=== PATIENT | female | born 1950 | race Hispanic/Latino ===

== ENCOUNTER 2019-11-17 19:06 | Emergency (ER) | payer MEDICARE ==
[2019-11-17 20:07] LABS: BASOPHILS % (AUTO) 0.2 % (0.0-5.0); HEMATOCRIT 32.4 % (36-48); LYMPHOCYTES % (AUTO) 31.6 % (21.0-51.0); MEAN CORPUSCULAR HEMOGLOBIN 29.5 pg (27.0-33.0); MEAN CORPUSCULAR HGB CONC 32.1 g/dL (32.0-36.0); MEAN CORPUSCULAR VOLUME 91.8 fL (79-99); MONOCYTES % (AUTO) 7.1 % (3.0-13.0); PLATELET COUNT (AUTO) 413 K/uL (130-400); RED BLOOD CELL COUNT(AUTO) 3.53 MIL/uL (4.00-5.50); RED CELL DISTRIBUTION WIDTH 14.3 % (11.0-15.5); WHITE BLOOD COUNT (AUTO) 4.5 K/uL (4.8-10.8)
[2019-11-17 20:19] LABS: PARTIAL THROMBOPLASTIN TIME 32.9 SEC (26.3-35.5); PROTHROMBIN TIME 10.8 SEC (9.6-11.6)
[2019-11-17 20:47] LABS: ABG BASE EXCESS -0.5 mmol/L (-2.0-3.0); ABG HCO3 22.4 mmol/L (21.0-28.0); ABG PCO2 32 mmHg (32-45)
[2019-11-17 20:59] LABS: CREATININE 1.8 mg/dL (0.5-1.5); POTASSIUM 5.4 mmol/L (3.5-5.1)
[2019-11-17 21:07] LABS: ALBUMIN 2.3 g/dL (3.5-5.0); BILIRUBIN,TOTAL 0.3 mg/dL (0.2-1.0); TOTAL PROTEIN, SERUM 8.6 g/dL (6.0-8.3)
[2019-11-17 21:10] LABS: B-TYPE NATRIURETIC PEPTIDE 25 pg/mL (0-100)
== END 2019-11-18 00:08 | disposition home or self-care (01) ==
LOC: EDH 19:06
DX: U07.1 COVID-19 (principal); J12.89 Other viral pneumonia; N28.9 Disorder of kidney and ureter, unspecified; J44.9 Chronic obstructive pulmonary disease, unspecified; Z90.710 Acquired absence of both cervix and uterus; Z87.891 Personal history of nicotine dependence
CPT/HCPCS: 36415; 36600; 71045; 80053; 82550; 82803; 83605; 83880; 84484; 85025; 85378; 85610; 85730; 93005

== ENCOUNTER 2019-11-19 21:01 | Inpatient (IN) | payer MEDICARE ==
[~2019-11-19] VITALS: Ht 154.9 cm; Wt 100.2 kg
[2019-11-19] MEDS ORDERED: ALBUTEROL INHALER 90MCG/INH IH ONE (22:47)
[2019-11-20] MEDS ORDERED: CEFTRIAXONE SODIUM 1 GM ONE (00:33)
[2019-11-20] MEDS ORDERED: ENOXAPARIN SODIUM 40 MG/0.4 ML SYRINGE SQ ONE (00:33)
[2019-11-20] MEDS ORDERED: DEXAMETHASONE SOD PHOSPHATE 10MG/ML 1ML VIAL ONE (00:33)
[2019-11-20] MEDS ORDERED: AZITHROMYCIN 250 MG TABLET PO ONE (00:34)
[2019-11-20] MEDS ORDERED: SODIUM CHLORIDE 0.9% 500ML 500 ML IV ONE (00:35)
[2019-11-20] MEDS ORDERED: DOXYCYCLINE 100MG+NS 250ML IV SCH (00:45)
[2019-11-20] MEDS ORDERED: ACETAMINOPHEN 325 MG TAB PO PRN (00:45)
[2019-11-20] MEDS ORDERED: DIPHENHYDRAMINE HCL 25 MG CAPSULE PO PRN (00:45)
[2019-11-20] MEDS ORDERED: ERGOCALCIFEROL (VITAMIN D2) 50,000 UNIT CAPSULE PO ONE (00:45)
[2019-11-20] MEDS ORDERED: DiphenhydrAMINE HCL 50 MG/ML VIAL IV PRN (00:45)
[2019-11-20] MEDS ORDERED: ZOLPIDEM TARTRATE 5 MG TAB PO PRN (00:45)
[2019-11-20] MEDS ORDERED: MAG HYDROX/AL HYDROX/SIMETH 30 ML, LIDOCAINE HCL 2% VISCOUS 30 ML, DIPHENHYDRAMINE HCL ... PO PRN ×3 (00:45)
[2019-11-20] MEDS ORDERED: LACTULOSE 20 GM/30 ML UDCUP PO PRN (00:45)
[2019-11-20] MEDS ORDERED: GUAIFENESIN-DM 200/20 MG 10 ML PO PRN (00:45)
[2019-11-20] MEDS ORDERED: NITROGLYCERIN 0.4 MG SL TAB SL PRN (00:45)
[2019-11-20] MEDS: DEXAMETHASONE SOD PHOSPHATE 4 MG/ML 1ML VIAL IVP SCH (01:00)
[2019-11-20] MEDS ORDERED: ERGOCALCIFEROL (VITAMIN D2) 50,000 UNIT CAPSULE ONE (03:39)
[2019-11-20] MEDS ORDERED: DOXYCYCLINE 100MG+NS 250ML 250 ML IV ONE (03:39)
[2019-11-20] MEDS: HEPARIN SODIUM 5000UNIT/ML 1ML VIAL SQ SCH ×3 (06:00→20:39)
[2019-11-20] MEDS: ZINC SULFATE 220 CAPSULE PO SCH (09:00)
[2019-11-20] MEDS: ASCORBIC ACID 500 MG TAB PO SCH (09:00)
[2019-11-20] MEDS: FAMOTIDINE/PF 20 MG/2 ML VIAL IV SCH (09:00)
[2019-11-20] MEDS ORDERED: ZINC SULFATE 220 CAPSULE ONE (11:48)
[2019-11-20 13:22] VITALS: BP 128/76
[2019-11-20] MEDS ORDERED: SODIUM CHLORIDE 0.9% 1000ML 1,000 ML IV SCH (13:30)
[2019-11-20] MEDS: CEFTRIAXONE SODIUM 1 GM IVP SCH (14:31)
[2019-11-20] MEDS ORDERED: DOXYCYCLINE 100MG+NS 250ML 250 ML IV SCH (15:00)
[2019-11-20] MEDS ORDERED: ALPR0.255 PO (16:15)
[2019-11-20] MEDS ORDERED: AZIT250T9 PO (16:15)
[2019-11-20] MEDS ORDERED: LEVO750T46 PO (16:15)
[2019-11-20] MEDS ORDERED: FLUT1AER IH (16:15)
[2019-11-20] MEDS ORDERED: OMEP40CA13 PO (16:15)
[2019-11-20] MEDS ORDERED: IVER3TAB PO (16:15)
[2019-11-20 16:21] VITALS: BP 122/71
[2019-11-20] MEDS: ONDANSETRON HCL 4 MG/2 ML VIAL IV PRN (16:33)
[2019-11-20] MEDS ORDERED: SOD FERRIC GLUC COMPLEX/SUC 125 MG in SODIUM CHLORIDE 0.9% 100 ML IV SCH (16:45)
[2019-11-20 19:53] VITALS: BP 125/76
--- NOTE | 2019-11-20 20:08 | NUR ---
INITIAL SW spoke with patient's daughter, Toyin Go. Patient lives daughter, Mackenzie Bynum. She has no home services. DME: glucometer(no insulin), BPM, nebulizer. Patient is able to complete ADL's independently and drives. 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 Pharmacy is [facility] in [place]. DCP is home. Addendum: 11/20/19 at 2009 by LAURENT DIETZ SS Amended: Links added.
[2019-11-20 23:27] VITALS: BP 150/75
[2019-11-21] MEDS: CEFTRIAXONE SODIUM 1 GM IVP SCH ×2 (01:19→13:46)
[2019-11-21] MEDS: DEXAMETHASONE SOD PHOSPHATE 4 MG/ML 1ML VIAL IVP SCH (01:20)
[2019-11-21 04:35] VITALS: BP 144/84
[2019-11-21 07:38] VITALS: BP 127/77
[2019-11-21] MEDS ORDERED: SOD FERRIC GLUC COMPLEX/SUC 125 MG in SODIUM CHLORIDE 0.9% 100 ML IV SCH (09:00)
[2019-11-21] MEDS: ONDANSETRON HCL 4 MG/2 ML VIAL IV PRN ×2 (09:00→15:30)
[2019-11-21] MEDS: ACETAMINOPHEN 325 MG TAB PO PRN (10:20)
[2019-11-21] MEDS: ZINC SULFATE 220 CAPSULE PO SCH (10:40)
[2019-11-21] MEDS: ASCORBIC ACID 500 MG TAB PO SCH (10:40)
[2019-11-21] MEDS: FAMOTIDINE/PF 20 MG/2 ML VIAL IV SCH (10:40)
[2019-11-21] MEDS: DOXYCYCLINE HYCLATE 100 MG TABLET PO SCH ×2 (10:40→20:30)
[2019-11-21 11:17] VITALS: BP 130/67
[2019-11-21] MEDS ORDERED: SODIUM CHLORIDE 0.9% 1000ML 1,000 ML IV SCH (12:00)
[2019-11-21] MEDS: PHARMACY COMMUNICATION MISC SCH ×2 (13:47→20:30)
[2019-11-21] MEDS: HEPARIN SODIUM 5000UNIT/ML 1ML VIAL SQ SCH ×2 (14:22→20:34)
[2019-11-21 15:48] VITALS: BP 145/71
[2019-11-21] MEDS: MORPHINE SULFATE 2 MG/ML 1ML SYG IV PRN ×2 (17:50→22:42)
[2019-11-21 20:06] VITALS: BP 151/81
[2019-11-21] MEDS: MAG HYDROX/AL HYDROX/SIMETH ES 30 ML SUSP UDCUP PO PRN (20:30)
--- NOTE | 2019-11-21 20:30 | NUR ---
ABDOMINAL PAIN Pt complained of abdominal discomfort,Myalanta given. Addendum: 11/21/19 at 2248 by CHAITANYA SANDOVAL RN RN *GISELA
[2019-11-21] MEDS: ALPRAZOLAM 0.25 MG TABLET PO PRN (21:42)
--- NOTE | 2019-11-21 21:42 | NUR ---
XANAX Pt wants her Xanax,c/o generalized pain and anxiety.
--- NOTE | 2019-11-21 22:34 | NUR ---
ABDOMINAL PAIN Pt constantly complaining of pain to her left side of her stomach,states Mprhine did not help.Lazara Whitehead Np.
[2019-11-21] MEDS ORDERED: MORPHINE SULFATE 2 MG/ML 1ML SYG IVP ONE (22:45)
--- NOTE | 2019-11-21 22:45 | NUR ---
MORPHINE Morphine 2 mg iv given as per Manager Specialty order for pt.s c/o persistent abdominal pain.
[2019-11-21 23:40] VITALS: BP 142/74
--- NOTE | 2019-11-21 23:45 | NUR ---
MED EFFECT Pt resting ,more calm.
[2019-11-22] MEDS: CEFTRIAXONE SODIUM 1 GM IVP SCH ×2 (00:28→18:28)
[2019-11-22] MEDS: DEXAMETHASONE SOD PHOSPHATE 4 MG/ML 1ML VIAL IVP SCH (00:29)
[2019-11-22] MEDS: MAG HYDROX/AL HYDROX/SIMETH ES 30 ML SUSP UDCUP PO PRN (01:34)
--- NOTE | 2019-11-22 01:47 | NUR ---
AWAKE Pt awake,still c/o abdominal discomfort,states she's constipated and wants to go home tomorrow.Medicated with Maalox as per request.
--- NOTE | 2019-11-22 03:00 | NUR ---
REST Pt resting now,eyes closed.
[2019-11-22 04:07] VITALS: BP 125/79
[2019-11-22] MEDS: PHARMACY COMMUNICATION MISC SCH ×4 (04:11→20:45)
--- NOTE | 2019-11-22 04:27 | NUR ---
CONSTIPATION Pt wants something for constipation now,Lactulose given.
[2019-11-22] MEDS: HEPARIN SODIUM 5000UNIT/ML 1ML VIAL SQ SCH ×3 (05:41→20:42)
--- NOTE | 2019-11-22 05:53 | NUR ---
PRUNE JUICE Pt offered prune juice,she said she just wants to have a bowel movement.
[2019-11-22] MEDS: MORPHINE SULFATE 2 MG/ML 1ML SYG IV PRN (06:04)
[2019-11-22] MEDS: ACETAMINOPHEN 325 MG TAB PO PRN ×2 (06:12→13:49)
--- NOTE | 2019-11-22 06:15 | NUR ---
PAIN Pt c/o abdominal pain,refused Morphine,she wants Tylenol instead.Medicated as per Emar.
[2019-11-22 08:00] VITALS: BP 103/54
[2019-11-22] MEDS: ZINC SULFATE 220 CAPSULE PO SCH (09:47)
[2019-11-22] MEDS: DOXYCYCLINE HYCLATE 100 MG TABLET PO SCH ×2 (09:47→20:45)
[2019-11-22] MEDS: ASCORBIC ACID 500 MG TAB PO SCH (09:47)
[2019-11-22] MEDS: FAMOTIDINE/PF 20 MG/2 ML VIAL IV SCH (09:47)
[2019-11-22] MEDS ORDERED: KETOROLAC TROMETHAMINE 60 MG/2 ML VIAL IM SCH (10:30)
[2019-11-22] MEDS ORDERED: KETOROLAC TROMETHAMINE 15MG/ML IM PRN (11:15)
[2019-11-22 12:00] VITALS: BP 108/75
--- NOTE | 2019-11-22 12:00 | NUR ---
SHIFT UPDATE PATIENT WITH C/O LUQ ABDOMINAL PAIN WITH EPISODE OF XL LOOSE STOOL X1. PATIENT STATES MORPHINE INEFFECTIVE FOR PAIN, MD MEDLEY NOTIFIED OF ABOVE COMPLAINTS AND GAVE ORDERS FOR XRAY OF ABD, PLACE PICC LINE AND TORADOL 15MG IM FOR PAIN. INTERVENTIONS FOLLOWED PER ORDER. STILL AWAITING PICC LINE PLACEMENT. CONSENT SINGED, PT/INR ORDERED AND SILVERER NOTIFIED OF NEED. PATIENT IS IN BED AT THIS TIME, CURRENT PAIN IS 7/10. NO RESP. DISTRESS NOTED, CALL DEVICE WITHIN REACH WILL CONT TO MONITOR.
[2019-11-22] MEDS: ALPRAZOLAM 0.25 MG TABLET PO PRN (13:49)
--- NOTE | 2019-11-22 13:49 | NUR ---
ABDOMINAL PAIN Patient cont. to c/o abdominal pain 06/14 and increased anxiety at this time. Episode of Large loose stool x1. Pt medicated per PRN MD orders. Tolerated well, call device within reach will cont. to monitor.
--- NOTE | 2019-11-22 14:30 | NUR ---
CDA CRITERIA PATIENT ON 4 COPD CANCER. ABDOMINAL PAIN GETTING XRAY TO R/O PERFFERATION. GETTING ACUTE WORK UP. CHANGING IV PAIN MEDS TO PO. DOES NOT MEET CRITERIA TODAY. Addendum: 11/22/19 at 1432 by SHIRLEY PAIZ RN CM Amended: Links added.
[2019-11-22 16:00] VITALS: BP 112/69
[2019-11-22] MEDS: SODIUM CHLORIDE 0.9% 1000ML 1,000 ML IV SCH ×2 (18:28→20:43)
[2019-11-22] MEDS: MORPHINE SULFATE 4 MG/1ML SYG IV PRN (18:50)
[2019-11-22] MEDS: ONDANSETRON HCL 4 MG/2 ML VIAL IV PRN (18:50)
--- NOTE | 2019-11-22 19:30 | NUR ---
SHIFT UPDATE GROUND WOOD SUPERVISOR JN Vazquez APRN RETURNED CALL AND INFORMED OF ABDOMINAL XRAY RESULTS. NEW ORDERS GIVEN 1)PATIENT NPO 2)PLACE NG TUBE 3) CONSULT FOR SURGERY FOR SMALL BOWEL OBSTRUCTION. PATIENT MADE AWARE OF NEW ORDERS. ONCOMING SHIFT NURSE MADE AWARE OF NEW ORDERS. WILL CONT TO MONITOR.
[2019-11-22 19:33] VITALS: BP 125/59
[2019-11-22 23:10] VITALS: BP 119/72
--- NOTE | 2019-11-23 | NUR ---
ng tube placed in left nares by moe from er and validated placement with cosmo.
--- NOTE | 2019-11-23 00:28 | NUR ---
CHEST XRAY TAKEN TO VERIFY PLACEMENT OF TUBE. PLACED IN THE STOMACH. PATIENT CONNECTED TO LOWE INTERMITTENT SUCTION.
[2019-11-23] MEDS: ONDANSETRON HCL 4 MG/2 ML VIAL IV PRN ×2 (00:30→06:49)
[2019-11-23] MEDS: MORPHINE SULFATE 4 MG/1ML SYG IV PRN ×3 (00:39→13:49)
[2019-11-23 03:20] VITALS: BP 108/60
[2019-11-23] MEDS: HEPARIN SODIUM 5000UNIT/ML 1ML VIAL SQ SCH ×3 (06:00→21:06)
--- NOTE | 2019-11-23 06:38 | NUR ---
ELEVATED D-DIMER THIS NURSE RECEIVED A CALL FROM LAB STATING D-DIMER WAS ELEVATED GREATER THAN 10,000. PAGED THE DOCTOR RETAIL CLIENT MANAGER FOR DR. MEDLEY. RETURNED CALL ACKNOWLEDGING D-DIMER AND NO ORDERS RECEIVED.
--- NOTE | 2019-11-23 06:50 | NUR ---
PATIENT PULLED OUT NG AND STATED SHE DOESN'T KNOW WHY SHE PULED IT OUT. EDUCATED THE IMPORTANCE OF KEEPING NG TUBE IN AND THAT THE DOCTOR WANTS HER TO HAVE IT IN. 629 LAURYN RN PLACED NG TUBE IN LEFT NARES AT 60CM WITH IMMEDIATE BRIGHT YELLOW RETURN PATIENT TOLERATED WELL LAURYN RN AND THIS NURSE VERIFIED PLACEMENT. AT 45 X-RAY VERIFIED PLACEMENT OF NG TUBE. NG CONNECTED TO LOW INTERMITTENT SUCTION AND MEDICATION GIVEN FOR PAIN AND NAUSEA.
[2019-11-23 08:00] VITALS: BP 117/57
[2019-11-23] MEDS: DEXAMETHASONE SOD PHOSPHATE 4 MG/ML 1ML VIAL IVP SCH (08:43)
[2019-11-23] MEDS: CEFTRIAXONE SODIUM 1 GM IVP SCH ×2 (08:43→21:05)
[2019-11-23] MEDS: FAMOTIDINE/PF 20 MG/2 ML VIAL IV SCH (08:43)
[2019-11-23] MEDS: ZINC SULFATE 220 CAPSULE PO SCH (08:44)
[2019-11-23] MEDS: DOXYCYCLINE HYCLATE 100 MG TABLET PO SCH ×2 (08:44→20:05)
[2019-11-23] MEDS: DOCUSATE SODIUM 100 MG CAP PO SCH (08:44)
[2019-11-23] MEDS: ASCORBIC ACID 500 MG TAB PO SCH (08:44)
[2019-11-23] MEDS: SODIUM CHLORIDE 0.9% 1000ML 1,000 ML IV SCH ×2 (08:45→20:03)
--- NOTE | 2019-11-23 09:48 | NUR ---
COVID PCR TEST Patient swabbed for COVID PCR Exam, sample brought to lab.
[2019-11-23 11:09] VITALS: BP 108/67
[2019-11-23] MEDS: PHARMACY COMMUNICATION MISC SCH ×3 (12:30→20:04)
--- NOTE | 2019-11-23 13:07 | NUR ---
Patient Disoriented and pulling out lines. Patient pulled out NGT and PICC Line. MD Walker contacted to request a one to one sitter and prn ativan, awaiting response.
[2019-11-23] MEDS ORDERED: LORAZEPAM 2 MG/ML 1 ML VIAL IVP PRN (13:30)
[2019-11-23] MEDS ORDERED: HYDROMORPHONE HCL 2 MG/ML VIAL IVP PRN (15:00)
--- NOTE | 2019-11-23 15:49 | NUR ---
NG TUBE NG Tube attempted x3, patient either pulled it back out or it came through her mouth. Patient unable to put chin to chest and swallow. MD Walker made aware.
[2019-11-23 16:00] VITALS: BP 89/55
--- NOTE | 2019-11-23 18:20 | NUR ---
URINARY RETENTION Bladder scan done per MD Walker request, 410 ml urine noted on bladder scan. Patient retaining urine. Crow catheter inserted, 400 ml of bloody urine drained into bag. Sample sent to lab for urine lytes and urine culture. Patient resting comfortably with sitter at bedside.
[2019-11-23] MEDS: LORAZEPAM 2 MG/ML 1 ML VIAL IVP PRN ×2 (18:22→23:58)
--- NOTE | 2019-11-23 19:30 | NUR ---
ASSESSMENT PATIENT BECAME MORE DISORIENTED ON DAY SHIFT. ATIVAN AND DILAUDED HAD BEEN GIVEN BEFORE THIS NURSE ARRIVED. PATIENT WAS RESTING QUIETLY WITH AROUSAL TO TOUCH. NRB ON. OXYGEN SATTING HIGH 90'S. SITTER IS AT BEDSIDE TO WATCH PATIENT SHE HAD PULLED OUT MULTIPLE LINES.
[2019-11-23 20:24] VITALS: BP 116/73
[2019-11-23 23:50] VITALS: BP 98/77
[2019-11-24] VITALS (9 sets, daily range): BP systolic 93–128; BP diastolic 56–106
[2019-11-24] MEDS: SODIUM CHLORIDE 0.9% 1000ML 1,000 ML IV SCH ×3 (05:04→20:20)
[2019-11-24] MEDS: HEPARIN SODIUM 5000UNIT/ML 1ML VIAL SQ SCH ×3 (06:02→20:20)
[2019-11-24] MEDS: HYDROMORPHONE HCL 2 MG/ML VIAL IVP PRN ×3 (06:06→22:02)
[2019-11-24] MEDS: METOCLOPRAMIDE 10 MG/2 ML VIAL IVP SCH ×2 (06:11→09:26)
--- NOTE | 2019-11-24 06:49 | NUR ---
CARDIZEM CARDIZEM DRIP INCREASED TO 15MG/HR HEART RATE IS STILL IN THE 140'S. WILL MONITOR HEART RATE AND BLOOD PRESSURE CLOSELY Addendum: 11/24/19 at 0651 by HEATHER HENDERSON RN RN ENTERED IN ERROR
--- NOTE | 2019-11-24 06:52 | NUR ---
PAGED DOCTOR CELESTE BHATIA PAGED FOR CRITICAL Labs AND TO UPDATE ON PATIENT CONFUSION AND GOODSON AT 250ML OF DARK RED BLOOD. NO RETURN CALL AT THIS TIME.
[2019-11-24] MEDS: ZINC SULFATE 220 CAPSULE PO SCH (09:00)
[2019-11-24] MEDS: DOCUSATE SODIUM 100 MG CAP PO SCH (09:00)
[2019-11-24] MEDS: DOXYCYCLINE HYCLATE 100 MG TABLET PO SCH (09:00)
[2019-11-24] MEDS: ASCORBIC ACID 500 MG TAB PO SCH (09:00)
[2019-11-24] MEDS: CEFTRIAXONE SODIUM 1 GM IVP SCH (09:25)
[2019-11-24] MEDS: DEXAMETHASONE SOD PHOSPHATE 4 MG/ML 1ML VIAL IVP SCH (09:26)
[2019-11-24] MEDS: FAMOTIDINE/PF 20 MG/2 ML VIAL IV SCH (09:26)
[2019-11-24] MEDS: IRON SUCROSE COMPLEX 300 MG in SODIUM CHLORIDE 0.9% 100 ML IV SCH (09:27)
[2019-11-24] MEDS ORDERED: SODIUM POLYSTYRENE SULFONATE 15 GM/60 ML ML PO SCH (11:45)
[2019-11-24] MEDS ORDERED: DOXYCYCLINE 100MG+NS 250ML 250 ML IV SCH (12:00)
[2019-11-24] MEDS ORDERED: FUROSEMIDE 10 MG/ML 4ML VIAL IV SCH (12:15)
[2019-11-24] MEDS: PHARMACY COMMUNICATION MISC SCH ×2 (12:30→20:26)
[2019-11-24] MEDS: LINEZOLID 600 MG/ISO-OSM 300 ML IV SCH (13:08)
[2019-11-24] MEDS: ZOSYN 3.375GM+NS 50ML 50 ML IV SCH ×2 (17:33→20:21)
--- NOTE | 2019-11-24 20:16 | NUR ---
PAGED DOCTOR ON CALLFOR PT GREATER THAN 63 AND INR GREATER THAN 7.
--- NOTE | 2019-11-24 22:00 | NUR ---
TRANSFER TO ICU MACHINIST SUPERVISOR LINDSEY WASHINGTON AND DR DELVALLE CALLED BACK AND STATED PATIENT WAS IN POSSIBLE DIC. ORDERS FOR 2 UNITS OF FFP AND HEPARIN D/C'D. LACTIC ACID ORDER OBTAINED WELL. ORDERS FOR ICU TRANSFER GIVEN TO MONITOR CLOSELY. PARKING LOT MANAGER PADMINI STATED SHE WOULD CALL FAMILY TO EXPLAIN WHAT IS GOING ON. BENCHMARK NOTIFIED OF TRANSFER TO ICU NO NEW ORDERS GIVEN. PATIENT HAS SITTER AT BEDSIDE. KIM SATTING IN 90'S ON A 15L NRB. REPORT GIVEN TO TEA BAG PACKER TAKING OVER CARE OF PATIENT.
[2019-11-25] VITALS (114 sets, daily range): BP systolic 66–159; BP diastolic 24–109
[2019-11-25] MEDS: LINEZOLID 600 MG/ISO-OSM 300 ML IV SCH ×2 (00:33→12:41)
[2019-11-25] MEDS: PHARMACY COMMUNICATION MISC SCH ×3 (04:31→22:22)
[2019-11-25] MEDS: SODIUM CHLORIDE 0.9% 1000ML 1,000 ML IV SCH (05:36)
[2019-11-25] MEDS ORDERED: SODIUM BICARB 50MEQ 50ML VIAL ONE ×2 (05:59→18:04)
[2019-11-25] MEDS ORDERED: DEXMEDETOMIDINE HCL 400 MCG in SODIUM CHLORIDE 0.9% 100 ML IV SCH (06:55)
[2019-11-25] MEDS ORDERED: SODIUM BICARB 50MEQ 50ML VIAL IV SCH ×3 (06:56→11:45)
[2019-11-25] MEDS: FAMOTIDINE/PF 20 MG/2 ML VIAL IV SCH (08:54)
[2019-11-25] MEDS: DEXAMETHASONE SOD PHOSPHATE 4 MG/ML 1ML VIAL IVP SCH (08:55)
[2019-11-25] MEDS: DOCUSATE SODIUM 100 MG CAP PO SCH (08:55)
[2019-11-25] MEDS: ZINC SULFATE 220 CAPSULE PO SCH (08:55)
[2019-11-25] MEDS: ASCORBIC ACID 500 MG TAB PO SCH (08:55)
[2019-11-25] MEDS: ZOSYN 3.375GM+NS 50ML 50 ML IV SCH ×2 (08:55→22:20)
[2019-11-25] MEDS: IRON SUCROSE COMPLEX 300 MG in SODIUM CHLORIDE 0.9% 100 ML IV SCH (10:03)
[2019-11-25] MEDS ORDERED: MIDODRINE HCL 5 MG TABLET PO SCH (11:07)
[2019-11-25] MEDS ORDERED: MIDAZOLAM 100MG-0.9% NS 100ML 100ML BAG IV ONE (12:45)
[2019-11-25] MEDS: MIDODRINE HCL 5 MG TABLET PO SCH ×2 (13:46→22:19)
[2019-11-25] MEDS: SODIUM BICARB 8.4% 50ML SYRING 200 MEQ in DEXTROSE 5%-WATER 800 ML IV SCH (17:00)
[2019-11-25] MEDS: ARTIFICIAL TEARS 3.5 GM OINTMENT OU SCH ×2 (17:00→22:22)
[2019-11-25] MEDS: FENTANYL 2500MCG+NS 250ML 250 ML IV SCH ×2 (17:03→22:21)
[2019-11-25] MEDS ORDERED: SODIUM CHLORIDE 0.9% 1000ML 2,000 ML IV ONE (18:43)
[2019-11-25] MEDS ORDERED: SODIUM CHLORIDE 0.9% 100 ML IV ONE (20:37)
[2019-11-25] MEDS ORDERED: DILTIAZEM 125MG+100 ML NS 125 ML IV PRN (20:45)
[2019-11-25] MEDS ORDERED: CHLORHEXIDINE GLUCONATE 473 ML MOUTHWASH MM SCH (21:00)
[2019-11-25] MEDS ORDERED: HEPARIN SODIUM 5000UNIT/ML 1ML VIAL ONE (21:31)
[2019-11-26] VITALS (44 sets, daily range): BP systolic 52–124; BP diastolic 22–87
[2019-11-26] MEDS ORDERED: DILTIAZEM HCL 125 MG/25 ML VIAL IV ONE (01:08)
[2019-11-26] MEDS: LINEZOLID 600 MG/ISO-OSM 300 ML IV SCH ×2 (01:35→13:05)
[2019-11-26] MEDS: NOREPINEPHRINE 4MG/NS 250ML 250 ML IV SCH ×2 (01:52→05:05)
[2019-11-26] MEDS: PHARMACY COMMUNICATION MISC SCH ×3 (03:48→22:03)
[2019-11-26] MEDS: FENTANYL 2500MCG+NS 250ML 250 ML IV SCH ×2 (03:49→06:26)
[2019-11-26] MEDS: ARTIFICIAL TEARS 3.5 GM OINTMENT OU SCH ×3 (05:05→19:00)
[2019-11-26] MEDS: SODIUM BICARB 8.4% 50ML SYRING 200 MEQ in DEXTROSE 5%-WATER 800 ML IV SCH ×2 (06:46→22:00)
[2019-11-26] MEDS: MIDAZOLAM 100MG-0.9% NS 100ML 100 ML IV SCH (06:47)
[2019-11-26] MEDS: DOCUSATE SODIUM 100 MG CAP PO SCH (08:55)
[2019-11-26] MEDS: ASCORBIC ACID 500 MG TAB PO SCH (08:55)
[2019-11-26] MEDS: MIDODRINE HCL 5 MG TABLET PO SCH ×3 (08:55→20:12)
[2019-11-26] MEDS: DEXAMETHASONE SOD PHOSPHATE 4 MG/ML 1ML VIAL IVP SCH (08:55)
[2019-11-26] MEDS: FAMOTIDINE/PF 20 MG/2 ML VIAL IV SCH (08:56)
[2019-11-26] MEDS: ZINC SULFATE 220 CAPSULE PO SCH (08:56)
[2019-11-26] MEDS: ZOSYN 3.375GM+NS 50ML 50 ML IV SCH ×2 (08:56→22:05)
[2019-11-26] MEDS: IRON SUCROSE COMPLEX 300 MG in SODIUM CHLORIDE 0.9% 100 ML IV SCH (09:00)
--- NOTE | 2019-11-26 11:25 | NUR ---
RDSCREEN - NPO X 3 DAYS, LOS X 6 Tube Feeding notification received. Recommend initiate Nepro continuous tube feeding @15mls for 10hrs. Goal 40mls/hr Recommend Flush 150 Q6hrs Recommendations faxed to Daniel RN notified. RD Note Pt admitted with COVID-19 PNA. Pt with poor PO intake since admit. Previous constipation, BM on 11/22/19. I/O: 2369/250ml. Recommend fluid restriction. Monitored labs:WBC 19.3, H/H 6.5/19.2, CO2 20, BUN 67, Cr 4.6, GFR 10, BG 270, Ca 5.1, Mg 1.60, Alb 2.1. Pt is s/p hemodialysis and blood transfusion. RD to continue to monitor. Please notify as additional nutrition concerns arise. Thank you. Addendum: 11/26/19 at [address] Amended: Links added.
--- NOTE | 2019-11-26 11:34 | NUR ---
PATIENT STATUS Patient received sedated on fentanyl and versed. 1 unit of PRBC's given for hemoglobin of 6.5. Awaiting 1 out of 2 units of FFP to administer for inr greater than 7. No transfusion reaction noted on unit of prbc. LINDSEY Pearson notified of patient lactic acid of 8, FOREST SUPERVISOR states to speak to MD Duffy for reccs. MD Pena rounded on patient, states patient will be dialyzed today. will continue to monitor.
[2019-11-26] MEDS ORDERED: SODIUM CHLORIDE 0.9% 500ML 500 ML IV ONE (11:58)
[2019-11-26] MEDS ORDERED: COMPOUND IV MISC 1 EACH IVSOLN MISC PRN (14:30)
[2019-11-26] MEDS ORDERED: NOREPINEPHRINE BITARTRATE 32 MG in SODIUM CHLORIDE 0.9% 250 ML IV SCH (15:45)
[2019-11-26] MEDS ORDERED: PHENYLEPHRINE HCL 100 MG in SODIUM CHLORIDE 0.9% 250 ML IV SCH (16:00)
[2019-11-26] MEDS ORDERED: SODIUM CHLORIDE 0.9% 250 ML IV ONE (17:08)
[2019-11-26] MEDS ORDERED: VASOPRESSIN 20 UNITS in SODIUM CHLORIDE 0.9% 100 ML IV SCH (17:45)
--- NOTE | 2019-11-26 18:37 | NUR ---
SHIFT NOTE Patient received total of 2 units of FFP and 1 unit RBC. Patient is currently on vaso, levo, and belem. Dialysis stopped 10 minutes prior to completion secondary to inability to obtain blood pressure. RN requested A line but MD says because of patients INR, A line can not be inserted. After starting belem and vaso along with levo, patients bp was able to be obtained. BP currently 103/78. Patient agonal breathing on vent, Respiratory notified and MD paged, awaiting response.
[2019-11-26] MEDS ORDERED: SODIUM BICARB 50MEQ 50ML VIAL IV SCH ×2 (19:00)
[2019-11-26] MEDS ORDERED: AMIODARONE HCL 360 MG in DEXTROSE 5%-WATER 200 ML IV SCH (19:30)
[2019-11-26] MEDS ORDERED: METRONIDAZOLE 250MG/50ML 50 ML IV SCH (22:00)
[2019-11-26] MEDS: HYDROCORTISONE SOD SUCCINATE 100 MG/2 ML VIAL IV SCH (22:04)
[2019-11-26] MEDS: CHLORHEXIDINE GLUCONATE 473 ML MOUTHWASH MM SCH (22:05)
[2019-11-27] VITALS (15 sets, daily range): BP systolic 65–94; BP diastolic 23–60
[2019-11-27] MEDS: LINEZOLID 600 MG/ISO-OSM 300 ML IV SCH (00:07)
[2019-11-27] MEDS: HYDROCORTISONE SOD SUCCINATE 100 MG/2 ML VIAL IV SCH ×2 (00:07→05:05)
[2019-11-27] MEDS: ARTIFICIAL TEARS 3.5 GM OINTMENT OU SCH ×2 (00:07→05:02)
[2019-11-27] MEDS: FENTANYL 2500MCG+NS 250ML 250 ML IV SCH ×2 (00:30→08:56)
[2019-11-27] MEDS ORDERED: AMIODARONE HCL 450 MG in DEXTROSE 5%-WATER 250 ML IV SCH (01:30)
[2019-11-27] MEDS ORDERED: PHENYLEPHRINE HCL 10 MG/ML 1ML VIAL IV ONE ×2 (01:46→01:48)
[2019-11-27] MEDS ORDERED: SODIUM CHLORIDE 0.9% 250 ML IV ONE (01:49)
[2019-11-27] MEDS ORDERED: SODIUM CHLORIDE 0.9% 1000ML 1,000 ML IV ONE ×2 (04:19→04:30)
[2019-11-27] MEDS: MIDAZOLAM 100MG-0.9% NS 100ML 100 ML IV SCH (08:55)
[2019-11-27] MEDS: ZINC SULFATE 220 CAPSULE PO SCH (08:56)
[2019-11-27] MEDS: ASCORBIC ACID 500 MG TAB PO SCH (08:56)
[2019-11-27] MEDS: MIDODRINE HCL 5 MG TABLET PO SCH (08:56)
[2019-11-27] MEDS: IRON SUCROSE COMPLEX 300 MG in SODIUM CHLORIDE 0.9% 100 ML IV SCH (08:57)
[2019-11-27] MEDS: FAMOTIDINE/PF 20 MG/2 ML VIAL IV SCH (09:00)
[2019-11-27] MEDS ORDERED: PHYTONADIONE 10 MG/1 ML AMP SQ SCH (09:00)
[2019-11-27] MEDS ORDERED: MEROPENEM 1 GM VIAL IVP STA (09:10)
[2019-11-27] MEDS ORDERED: CALCIUM GLUCONATE 1 GM/10 ML VIAL IV STA (09:10)
[2019-11-27] MEDS ORDERED: SODIUM POLYSTYRENE SULFONATE 15 GM/60 ML ML PO SCH (09:15)
[2019-11-27] MEDS ORDERED: PHARMACY COMMUNICATION MISC SCH (09:15)
[2019-11-27] MEDS ORDERED: EPINEPHRINE 10 MG in SODIUM CHLORIDE 0.9% 250 ML IV SCH (09:30)
[2019-11-27] MEDS ORDERED: SODIUM BICARB 50MEQ 50ML VIAL IV SCH (09:45)
[2019-11-27] MEDS ORDERED: CALCIUM GLUCONATE 2 GM in SODIUM CHLORIDE 0.9% 100 ML IV SCH (10:00)
[2019-11-27] MEDS: CHLORHEXIDINE GLUCONATE 473 ML MOUTHWASH MM SCH (10:07)
[2019-11-27] MEDS: DOCUSATE SODIUM 100 MG CAP PO SCH (10:07)
[2019-11-27] MEDS ORDERED: MICAFUNGIN 100MG+NS 100ML 100 ML IV SCH (11:00)
[2019-11-27] MEDS ORDERED: SODIUM CHLORIDE 0.9% 1000ML 4,000 ML IV ONE (11:16)
--- NOTE | 2019-11-27 12:32 | NUR ---
ASYSTOLE While hanging blood, patient noted to be asystole. No carotid pulse noted. CAFETERIA DIRECTOR FLOYD notified and pronounced patient Time of 1225.
== END 2019-11-27 12:25 | disposition expired | DRG 208 ==
LOC: EDH 21:01 → EDHIP 11-20 00:43 → 2AH 11-20 13:00 → 2CV 11-24 21:37
PROVIDERS: ADMIT Internal Medicine; ATTEND Internal Medicine
PROC: 02HV33Z Insertion of Infusion Device into Superior Vena Cava, Percutaneous Approach (ICD-10-PCS; 2019-11-20)
PROC: B548ZZA Ultrasonography of Superior Vena Cava, Guidance (ICD-10-PCS; 2019-11-20)
PROC: 02HV33Z Insertion of Infusion Device into Superior Vena Cava, Percutaneous Approach (ICD-10-PCS; 2019-11-20)
PROC: 0XJ Anatomical Regions, Upper Extremities, Inspection (ICD-10-PCS; 2019-11-20)
PROC: 5A1945Z Respiratory Ventilation, 24-96 Consecutive Hours (ICD-10-PCS; principal; 2019-11-25)
PROC: 0BH17EZ Insertion of Endotracheal Airway into Trachea, Via Natural or Artificial Opening (ICD-10-PCS; 2019-11-25)
PROC: 5A1D70Z Performance of Urinary Filtration, Intermittent, Less than 6 Hours Per Day (ICD-10-PCS; 2019-11-25)
PROC: 5A1D70Z Performance of Urinary Filtration, Intermittent, Less than 6 Hours Per Day (ICD-10-PCS; 2019-11-26)
PROC: 30233N1 Transfusion of Nonautologous Red Blood Cells into Peripheral Vein, Percutaneous Approach (ICD-10-PCS; 2019-11-26)
PROC: 30233L1 Transfusion of Nonautologous Fresh Plasma into Peripheral Vein, Percutaneous Approach (ICD-10-PCS; 2019-11-26)
PROC: 30233K1 Transfusion of Nonautologous Frozen Plasma into Peripheral Vein, Percutaneous Approach (ICD-10-PCS; 2019-11-26)
PROC: XW13325 Transfusion of Convalescent Plasma (Nonautologous) into Peripheral Vein, Percutaneous Approach, New Technology Group 5 (ICD-10-PCS; 2019-11-26)
DX: U07.1 COVID-19 (principal); J96.01 Acute respiratory failure with hypoxia; J12.89 Other viral pneumonia; D65 Disseminated intravascular coagulation [defibrination syndrome]; K72.00 Acute and subacute hepatic failure without coma; K85.90 Acute pancreatitis without necrosis or infection, unspecified; N18.6 End stage renal disease; N17.9 Acute kidney failure, unspecified; E87.1 Hypo-osmolality and hyponatremia; J44.0 Chronic obstructive pulmonary disease with (acute) lower respiratory infection; E87.2 Acidosis; G93.40 Encephalopathy, unspecified; I12.0 Hypertensive chronic kidney disease with stage 5 chronic kidney disease or end stage renal disease; J98.11 Atelectasis; N39.0 Urinary tract infection, site not specified; D64.9 Anemia, unspecified; E78.5 Hyperlipidemia, unspecified; E86.0 Dehydration; E11.22 Type 2 diabetes mellitus with diabetic chronic kidney disease; R53.81 Other malaise; E86.1 Hypovolemia; E87.5 Hyperkalemia; I48.91 Unspecified atrial fibrillation; R31.0 Gross hematuria; Z66 Do not resuscitate; Z87.891 Personal history of nicotine dependence; Z85.41 Personal history of malignant neoplasm of cervix uteri; Z85.42 Personal history of malignant neoplasm of other parts of uterus; Z86.2 Personal history of diseases of the blood and blood-forming organs and certain disorders involving the immune mechanism; Z90.710 Acquired absence of both cervix and uterus; Z99.2 Dependence on renal dialysis
CPT/HCPCS: 31500; 36415; 36430; 36569; 36600; 71045; 74018; 74021; 74176; 76770; 80048; 80053; 80061; 80074; 80076; 81001; 82040; 82150; 82550; 82570; 82728; 82803; 82948; 83540; 83550; 83605; 83615; 83690; 83735; 83874; 84100; 84145; 84300; 84484; 85025; 85027; 85378; 85384; 85610; 85730; 86140; 86701; 86705; 86706; 86850; 86870; 86900; 86901; 86922; 86927; 87040; 87088; 87340; 87390; 87426; 87520; 90935; 93005; 94002; 94003; 99291; C1751; C1894; G0378; J0171; J0282; J0610; J0696; J1100; J1170; J1644; J1650; J1720; J1756; J1885; J1940; J2020; J2060; J2248; J2270; J2370; J2405; J2543; J2765; J2916; J3010; J3430; J3490; J7030; J7040; J7050; J7060; J7070; P9012; P9016; P9017; Q0163; U0003